=== PATIENT | female | born 1985 | race American Indian/Alaskan Native ===

== ENCOUNTER 2017-11-10 10:38 | Emergency (ER) | payer SELFPAY ==
[2017-11-10 11:52] VITALS: BP 144/90
[2017-11-10 12:36] LABS: HCG Qualitative,Urine Negative (Negative)
[2017-11-10 12:38] LABS: Bilirubin,Urine NEG (Negative); Blood,Urine NEG (Negative); Color,Urine Yellow (Yellow); Mucus,Urine FEW /HPF; Nitrite,Urine NEG (Negative); Protein,Urine <15 mg/dL mg/dL (Negative); Urobilinogen,Urine < 2.0 mg/dL (<2.0)
--- NOTE | 2017-11-10 16:47 | Emergency Department Report ---
ED Female HPI - General Chief complaint: Urogenital-Female Stated complaint: SMELL IN DISCHARGE Time Seen by Provider: 11/10/17 16:46 Source: patient Mode of arrival: Ambulatory Limitations: No Limitations - History of Present Illness Initial comments: Patient here reports that she has vaginal discharge with brownish color. She said has a fishy odor. She said this is been going on for a week. He does report that patient possible STD and patient reports that she doesn't have STD. She said she had bacterial vaginosis in the past and this what sounds like. She denies any abdominal pain although triage reports the patient was having pelvic pain. Patient says she is not having any pain. Denies any vaginal bleeding. Last menstrual period was 10/13/2017. I asked patient if she douches and she says she usually does after she has her menstrual cycle. Complaint: vaginal discharge Onset/Timin -: week(s) Severity scale (0 -10): 0 Are you Now?: No Last Menstrual Period: 10/13/17 EDC: 07/20/18 Associated Symptoms: vaginal discharge. denies: vaginal bleeding, abdominal pain, nausea/vomiting, fever/chills, headaches, loss of appetite, dysuria, hematuria, rash, seizure, shortness of breath, syncope, weakness - Related Data Sexually active: Yes (partner without any symptoms) Previous Rx's Medication Instructions Recorded Last Taken Type metroNIDAZOLE [Flagyl] 500 mg PO Q12HR 7 Days #14 tab 11/10/17 Unknown Rx Allergies Allergy/AdvReac Type Severity Reaction Status Date / Time No Known Allergies Allergy Unverified 11/10/17 11:52 ED Review of Systems ROS: Stated complaint: SMELL IN DISCHARGE Other details as noted in HPI Comment: All other systems reviewed and negative Constitutional: no symptoms reported ENT: denies: throat pain Respiratory: no symptoms reported Cardiovascular: denies: chest pain, palpitations, dyspnea on exertion, edema, syncope, paroxysmal nocturnal dyspnea Gastrointestinal: denies: abdominal pain, nausea, vomiting, diarrhea, constipation, hematemesis Genitourinary: discharge. denies: urgency, dysuria, frequency, hematuria, abnormal menses, dyspareunia Musculoskeletal: denies: back pain, arthralgia, myalgia Skin: denies: rash Neurological: denies: headache ED Past Medical Hx - Past Medical History Previous Medical History?: Yes Hx Hypertension: Yes - Surgical History Past Surgical History?: No - Family History Family history: no significant - Social History Smoking Status: Former Smoker Substance Use Type: Alcohol - Medications Home Medications: Home Medications Medication Instructions Recorded Confirmed Last Taken Type metroNIDAZOLE [Flagyl] 500 mg PO Q12HR 7 Days #14 tab 11/10/17 Unknown Rx ED Physical Exam - General Limitations: No Limitations General appearance: alert, in no apparent distress - Head Head exam: Present: atraumatic, normocephalic, normal inspection - Eye Eye exam: Present: normal appearance, PERRL, EOMI Pupils: Present: normal accommodation - ENT ENT exam: Present: normal exam, normal orophraynx, mucous membranes moist - Neck Neck exam: Present: normal inspection, full ROM. Absent: tenderness, meningismus, lymphadenopathy, thyromegaly - Respiratory Respiratory exam: Present: normal lung sounds bilaterally. Absent: respiratory distress, chest wall tenderness - Cardiovascular Cardiovascular Exam: Present: regular rate, normal rhythm, normal heart sounds. Absent: systolic murmur, diastolic murmur - GI/Abdominal GI/Abdominal exam: Present: soft, normal bowel sounds. Absent: distended, tenderness, guarding, rebound, rigid, organomegaly, mass, bruit, pulsatile mass , hernia - External exam: Present: normal external exam. Absent: erythema, swelling, lesions, lacerations, ecchymosis, bleeding Speculum exam: Present: vaginal discharge, cervical discharge. Absent: normal speculum exam, erythema, vaginal bleeding, foreign body, tissue, laceration Bi-manual exam: Present: normal bi-manual exam. Absent: cervical motion tendernes, adnexal tenderness, adnexal mass, uterine enlargement, uterine tenderness - Extremities Exam Extremities exam: Present: normal inspection, full ROM, normal capillary refill , other (no clubbing, cyanosis or edema. +2 pulses all extremities and no neurovascular compromise). Absent: tenderness, pedal edema, joint swelling, calf tenderness - Back Exam Back exam: Present: normal inspection, full ROM. Absent: tenderness, CVA tenderness (R), CVA tenderness (L), muscle spasm, paraspinal tenderness, vertebral tenderness, rash noted - Neurological Exam Neurological exam: Present: alert, oriented X3, normal gait - Psychiatric Psychiatric exam: Present: normal affect, normal mood - Skin Skin exam: Present: warm, dry, intact, normal color. Absent: rash ED Course Vital Signs 11/10/17 11:46 Temperature 98.8 F Pulse Rate 80 Respiratory 18 Rate Blood Pressure 144/90 O2 Sat by Pulse 100 Oximetry - Reevaluation(s) Reevaluation #1: 11/10/17 18:21 Patient wet prep positive for bacterial vaginosis negative for Trichomonas and yeast. Urinalysis negative for infection and negative . Gonorrhea and chlamydia pending ED Medical Decision Making - Lab Data Lab Results 11/10/17 Range/Units Unknown Urine Color Yellow (Yellow) Urine Turbidity Clear (Clear) Urine pH 7.0 (5.0-7.0) Ur Specific [place] 1.024 (1.003-1.030) Urine Protein <15 mg/dl (Negative) mg/dL Urine Glucose (UA) Neg (Negative) mg/dL Urine Ketones Neg (Negative) mg/dL Urine Blood Neg (Negative) Urine Nitrite Neg (Negative) Ur Reducing Substances Not Reportable Urine Bilirubin Neg (Negative) Urine Ictotest Not Reportable Urine Urobilinogen < 2.0 (<2.0) mg/dL Ur Leukocyte Esterase Neg (Negative) Urine WBC (Auto) 1.0 (0.0-6.0) /HPF Urine RBC (Auto) 1.0 (0.0-6.0) /HPF U Epithel Cells (Auto) < 1.0 (0-13.0) /HPF Urine Mucus Few /HPF Urine HCG, Qual Negative (Negative) wet prep positive for bacterial vaginosis negative for Trichomonas and yeast. Urinalysis negative for infection and negative . Gonorrhea and chlamydia pending - Medical Decision Making ED course:Pt here for vaginal discharge times one week. Abdominal exam is normal.Pelvic exam with discharge in vaginal vault and on cervix. Patient wet prep positive for bacterial vaginosis negative for Trichomonas and yeast. Urinalysis negative for infection and negative . Gonorrhea and chlamydia pending. Patient is not concerned for any gonorrhea or Chlamydia. I discussed results of her wet prep with her and told her treatment plan and follow-up plan. She chooses to wait until gonorrhea and chlamydia test comes back. Patient with bacterial vaginosis and will be treated with Flagyl. Patient discharged home with prescription for Flagyl and to follow up with primary care physician and 2 days or some outside Medical Center. Critical care attestation.: If time is entered above; I have spent that time in minutes in the direct care of this critically ill patient, excluding procedure time. ED Disposition Clinical Impression: Bacterial vaginosis, Vaginal discharge Disposition: TO HOME OR SELFCARE Is pt being admited?: No Does the pt Need Aspirin: No Condition: Stable Instructions: Bacterial Vaginosis (ED) Additional Instructions: Please avoid dilution Take Flagyl as prescribed Follow-up with your primary care physician in 2 days and if you do not have a primary care physician please follow-up with outside Medical Center. Results of gonorrhea and chlamydia will be back in 5 days so he can return to the Hospital medical records department twice a day to get the results or you can have your primary care physician requests. Prescriptions: metroNIDAZOLE [Flagyl] 500 mg PO Q12HR 7 Days #14 tab Referrals: PRIMARY CARE [Primary Care Provider] - 11/12/17 [facility] [Outside] - 11/12/17 Forms: STI Treatment and Prevention, Work/School Release Form(ED)
== END 2017-11-10 18:35 | disposition home or self-care (01) ==
LOC: ED 10:38
DX: N76.0 Acute vaginitis (principal); B96.89 Other specified bacterial agents as the cause of diseases classified elsewhere; I10 Essential (primary) hypertension; Z87.891 Personal history of nicotine dependence
CPT/HCPCS: 81001; 81025; 87210; 87591; 99284